=== PATIENT | male | born 1960 | race American Indian/Alaskan Native ===

== ENCOUNTER 2024-08-11 05:51 | Day surgery (SDC) | payer BC, OTHER ==
[2024-08-11] MEDS ORDERED: Midazolam 1 MG/ML 2 ML SDV ONE (06:14)
[2024-08-11] MEDS ORDERED: fentaNYL 100 MCG/2 ML SDV IV ONE (06:14)
[2024-08-11] MEDS ORDERED: fentaNYL 100 MCG/2 ML SDV ONE (06:14)
[2024-08-11] MEDS ORDERED: Midazolam 1 MG/ML 2 ML SDV IV ONE (06:14)
[2024-08-11] MEDS: Dextrose 5%-0.45% NaCl 1,000 ML IV SCH (06:43)
[2024-08-11] MEDS: fentaNYL 100 MCG/2 ML SDV IV ONE ×2 (06:52→06:53)
[2024-08-11] MEDS: Midazolam 1 MG/ML 2 ML SDV IV ONE ×5 (06:53→07:02)
== END 2024-08-11 08:27 | disposition home or self-care (01) ==
LOC: DL.ENDO 05:51
PROVIDERS: ATTEND Internal Medicine Gastroenterology
DX: Z12.11 Encounter for screening for malignant neoplasm of colon (principal); K64.8 Other hemorrhoids
CPT/HCPCS: J2250; J3010; J7799